=== PATIENT | female | born 1995 | race Caucasian/White ===

== ENCOUNTER 2019-01-28 19:07 | Emergency (ER) | payer OTHER ==
[2019-01-28] MEDS ORDERED: methylPREDNISolone 125 MG* 2 ML VIAL IV ONE (19:45)
[2019-01-28] MEDS ORDERED: Famotidine IV* 10 MG/ML 2 ML (20 mg) IV SLOW PU ONE (19:45)
[2019-01-28] MEDS ORDERED: NS 0.9% 1000 ML** 1,000 ML IV ONE (19:45)
--- NOTE | 2019-01-28 19:52 | ED ---
Allergic Reaction/Systemic - HPI Summary HPI Summary: 24-year-old female presents with allergic reaction today. She states she had some tea with soy in it that has had throat irritation with before. This time she develop shortness of breath and eyes water especially right eye. she admits to sinus congestion. She states that she is short of breath and was wheezing. She took benadryl and is feeling better. Denies any chest pain. no difficulty swallowing. No nausea vomiting or abdominal pain. Never had this reaction before. denies a history of asthma. - History of Current Complaint Chief Complaint: EDAllergicReaction Time Seen by Provider: 01/28/19 19:41 Pain Intensity: 0 - Allergies/Home Medications Allergies/Adverse Reactions: Allergies Allergy/AdvReac Type Severity Reaction Status Date / Time Penicillins Allergy Unknown Verified 01/28/19 19:23 Reaction Details PMH/Surg Hx/FS Hx/Imm Hx Endocrine/Hematology History: Denies: Hx Anticoagulant Therapy Respiratory History: Denies: Hx Asthma Infectious Disease History: No Infectious Disease History: Denies: Traveled Outside the [place] in Last 30 Days - Family History Known Family History: Positive: Respiratory Disease Review of Systems Negative: Fever Positive: Sore Throat, Nasal Discharge Negative: Chest Pain Positive: Shortness Of Breath All Other Systems Reviewed And Are Negative: Yes Physical Exam Triage Information Reviewed: Yes Vital Signs On Initial Exam: Initial Vitals Temp Pulse Resp BP Pulse Ox 98.8 F 75 20 137/84 99 01/28/19 19:23 01/28/19 19:23 01/28/19 19:23 01/28/19 19:23 01/28/19 19:23 Vital Signs Reviewed: Yes Appearance: Positive: Well-Appearing Skin: Positive: Warm, Dry Head/Face: Positive: Normal Head/Face Inspection Eyes: Positive: EOMI, KOFFI, Conjunctiva Inflammed - watery right eye ENT: Positive: Pharynx normal, Nasal congestion Respiratory/Lung Sounds: Positive: Clear to Auscultation, Breath Sounds Present Cardiovascular: Positive: Normal, RRR Abdomen Description: Positive: Nontender, Soft Bowel Sounds: Positive: Present Musculoskeletal: Positive: Normal Neurological: Positive: Normal Psychiatric: Positive: Normal Diagnostics - Vital Signs Vital Signs Temp Pulse Resp BP Pulse Ox 01/28/19 19:23 98.8 F 75 20 137/84 99 - Laboratory Lab Statement: Any lab studies that have been ordered have been reviewed, and results considered in the medical decision making process. Re-Evaluation - Re-Evaluation First Eval Re-Evaluation Time: 20:58 Change: Improved Comment: symptoms resolved Allergic Reaction Course/Dx - Course Course Of Treatment: 24-year-old female presents with allergic reaction today. She states she had some tea with soy in it that has had throat irritation with before. This time she develop shortness of breath and eyes water especially right eye. she admits to sinus congestion. She states that she is short of breath and was wheezing. She took benadryl and is feeling better. Denies any chest pain. no difficulty swallowing. No nausea vomiting or abdominal pain. Never had this reaction before. denies a history of asthma. On exam lungs clear to auscultation. Eye has watery discharge. Nasal congestion present. Pharynx normal. Gave steroid and fluids and feeling better. Symptoms have resolved. Will have continue hydroxyzine and steroid at home. Warned if anything changes to return. Patient understands agrees with plan. - Diagnoses Differential Diagnosis/HQI/PQRI: Positive: Anaphylaxis, Local Allergic Reaction , Urticaria Provider Diagnoses: Allergic reaction Discharge - Sign-Out/Discharge Documenting (check all that apply): Patient Departure Patient Received Moderate/Deep Sedation with Procedure: No - Discharge Plan Condition: Good Disposition: HOME Prescriptions: hydrOXYzine HCL TAB* [Atarax 25 MG TAB*] 25 mg PO QID PRN #8 tab PRN Reason: Allergy Symptoms predniSONE TAB* [Deltasone TAB*] 50 mg PO DAILY #4 tab Patient Education Materials: Food Allergy (ED) Referrals: No Primary Care Phys,NOPCP [Primary Care Provider] - Additional Instructions: Take Benadryl every 6 hours at night and hydroxyzine during the day every 6 hours Take steroid once a day for 4 days starting tomorrow Return to ED if shortness of breath, chest pain, or if develop any new or worsening symptoms - Billing Disposition and Condition Condition: GOOD Disposition: Home
[2019-01-28 21:21] VITALS: BP 109/75
== END 2019-01-28 21:20 | disposition home or self-care (01) ==
LOC: ED 19:07
DX: T78.1XXA Other adverse food reactions, not elsewhere classified, initial encounter (principal); R06.02 Shortness of breath; X58.XXXA Exposure to other specified factors, initial encounter; Z88.0 Allergy status to penicillin
CPT/HCPCS: 96361; 96374; 96375; 99283; J2930